=== PATIENT | male | born 1945 | race Caucasian/White ===

== ENCOUNTER → 2020-02-09 10:53 | Outpatient (BNVA) | payer OTHER, SELFPAY | PROVIDERS: Referring Provider Student in an Organized Health Care Education/Training Program; Visit Provider Specialist | DX: G62.9 Polyneuropathy, unspecified (principal); R42 Dizziness and giddiness | CPT/HCPCS: 99204 ==

== ENCOUNTER → 2020-04-07 11:47 | Outpatient (BNVA) | payer MEDICARE, SELFPAY | PROVIDERS: Referring Provider Student in an Organized Health Care Education/Training Program; Visit Provider Specialist | DX: G62.89 Other specified polyneuropathies (principal) | CPT/HCPCS: 95909 ==